=== PATIENT | male | born 1940 | race Caucasian/White ===

== ENCOUNTER 2023-06-29 09:12 | Day surgery (SDC) | payer MEDICARE, OTHER ==
[~2023-06-29] VITALS: Ht 167.6 cm; Wt 80.0 kg
[2023-06-29] VITALS (12 sets, daily range): BP systolic 126–168; BP diastolic 65–80; PULSE 77–95; RESP 12–16; TEMP 97.4; O2SAT 95–100
[~2023-06-29 09:12] MED LIST: ASCO500C17 PO; ATOR10TA70 PO; CHOL400T57 PO; FINA5TAB12 PO; LEVO125T8 PO; METO-384 PO; OMEG-5 PO; famotidine 20mg tablet PO ONE; ringers solution, lacted 1,000 ML IV SCH
[2023-06-29 10:09] LABS: BASOPHILS % (AUTO) 0.3 % (0-1); EOSINOPHILS % (AUTO) 0.3 % (0-6); LYMPHOCYTES # (AUTO) 0.7 X10'3 (1.1-4.8); LYMPHOCYTES % (AUTO) 7.6 % (21-51); MEAN CORPUSCULAR HEMOGLOBIN 30.1 PG (27.0-31.0); MEAN CORPUSCULAR HGB CONC 32.2 g/dL (33.0-36.5); MEAN CORPUSCULAR VOLUME 93.5 FL (78-98); MEAN PLATELET VOLUME 6.4 FL (7.4-10.4); MONOCYTES # (AUTO) 0.7 X10'3 (0-0.9); MONOCYTES % (AUTO) 8.2 % (2-12); NEUTROPHILS # (AUTO) 7.5 X10'3 (1.8-7.7); NEUTROPHILS % (AUTO) 83.6 % (42-75); PRE OP HEMATOCRIT 35.5 % (42.0-52.0); PRE OP HEMOGLOBIN 11.5 g/dL (14.0-17.9); PRE OP PLATELET COUNT 543 X10'3 (140-440); PRE OP WHITE BLOOD COUNT 8.9 10'3 (4.8-10.8); RED CELL DISTRIBUTION WIDTH 15.8 % (11.5-14.5)
[2023-06-29 10:18] LABS: ALBUMIN 3.3 G/DL (3.4-5.0); ALBUMIN/GLOBULIN RATIO 0.7 (1.1-1.5); ALKALINE PHOSPHATASE 83 IU/L (46-116); BLOOD UREA NITROGEN 18 MG/DL (7-18); BUN/CREATININE RATIO 15.5 (10.0-20.0); CALCIUM 9.3 MG/DL (8.5-10.1); CHLORIDE 100 MMOL/L (99-107); CREATININE 1.16 MG/DL (0.60-1.10); PRE OP ALT 22 U/L (30-65); PRE OP ANION GAP 6 (8-16); PRE OP AST 23 U/L (10-37); PRE OP BILIRUB, TOTAL 0.5 MG/DL (0.0-1.0); PRE OP GLUCOSE 95 MG/DL (70-104); PRE OP POTASSIUM 4.9 MMOL/L (3.4-5.1); PRE OP SODIUM 134 MMOL/L (135-145); TOTAL CARBON DIOXIDE 27.7 MMOL/L (24-32); TOTAL PROTEIN 7.9 G/DL (6.4-8.2); eCRCL 44 ML/MIN; eGFR 60 ML/MIN
[2023-06-29] MEDS ORDERED: fentaNYL/PF 50MCG/1 ML 2ML syringe ONE (12:20)
[2023-06-29] MEDS ORDERED: midazolam 1 mg/ML 2ml injection ONE (12:20)
[2023-06-29] MEDS ORDERED: rocuronium 10mg/ml inj IV ONE (12:37)
[2023-06-29] MEDS ORDERED: ondansetron/PF 4mg/2ml inj ONE (12:38)
[2023-06-29] MEDS ORDERED: propofol inj 20 ML IV ONE (12:38)
[2023-06-29] MEDS ORDERED: glycopyrrolate 0.2mg/ml inj ONE (12:38)
[2023-06-29] MEDS ORDERED: LIDOcaine 2% (20mg/ml) 5ml vial ONE (12:38)
[2023-06-29] MEDS ORDERED: dexamethasone sod phosphate 4mg/ml inj. ONE (12:38)
[2023-06-29] MEDS ORDERED: hydrALAZINE 20mg/ml inj. IV PRN (12:55)
[2023-06-29] MEDS ORDERED: ondansetron/PF 4mg/2ml inj IV PRN (12:55)
[2023-06-29] MEDS ORDERED: ringers solution, lacted 1,000 ML IV SCH (12:55)
[2023-06-29] MEDS ORDERED: morphine 4 MG/ML inj SYRINge IV PRN (12:55)
[2023-06-29] MEDS ORDERED: labetalol 20mg/4ml (5mg/ml) syringe IV PRN (12:55)
[2023-06-29] MEDS ORDERED: morphine 2 MG/ML inj. syringe IV PRN (12:55)
== END 2023-06-29 14:38 | disposition home or self-care (01) ==
LOC: PAS 09:12
PROVIDERS: ATTEND Internal Medicine Critical Care Medicine
DX: R91.8 Other nonspecific abnormal finding of lung field (principal); C34.11 Malignant neoplasm of upper lobe, right bronchus or lung; E03.9 Hypothyroidism, unspecified; I25.119 Atherosclerotic heart disease of native coronary artery with unspecified angina pectoris; E78.5 Hyperlipidemia, unspecified; G47.33 Obstructive sleep apnea (adult) (pediatric); N40.0 Benign prostatic hyperplasia without lower urinary tract symptoms; I25.2 Old myocardial infarction; Z85.828 Personal history of other malignant neoplasm of skin; Z79.82 Long term (current) use of aspirin; Z79.890 Hormone replacement therapy; Z79.899 Other long term (current) drug therapy; Z95.1 Presence of aortocoronary bypass graft; Z98.890 Other specified postprocedural states; Z91.040 Latex allergy status
CPT/HCPCS: 31625; 31629; 31653; 36415; 71045; 71250; 80053; 82948; 85025; 93005; 94760; J1100; J2250; J2405; J2704; J3010; J3490; J7120; Z7506; Z7508; Z7512; 31622; 31626; 31627; 31628; 31654; 88173; 88305; 88341; 88342; A4618